=== PATIENT | female | born 1950 | race Caucasian/White ===

== ENCOUNTER → 2024-02-01 11:49 | Outpatient (REF) | payer MEDICARE, OTHER, SELFPAY | LOC: WDC 11:49 | PROVIDERS: ATTENDING PHYSICIAN Obstetrics & Gynecology Gynecology; FAMILY PHYSICIAN Internal Medicine Geriatric Medicine | DX: Z12.31 Encounter for screening mammogram for malignant neoplasm of breast (principal) | CPT/HCPCS: 77063; 77067 ==

== ENCOUNTER → 2024-05-10 06:41 | Day surgery (SDC) | payer MEDICARE, OTHER, SELFPAY | LOC: GI 06:41 | PROVIDERS: ATTENDING PHYSICIAN Internal Medicine Gastroenterology | DX: K22.89 Other specified disease of esophagus (principal); K44.9 Diaphragmatic hernia without obstruction or gangrene; E16.4 Increased secretion of gastrin; R14.0 Abdominal distension (gaseous) | CPT/HCPCS: 43239; 88305; 88342 ==

== ENCOUNTER → 2025-02-04 11:40 | Outpatient (REF) | payer MEDICARE, OTHER, SELFPAY | LOC: WDC 11:40 | PROVIDERS: ATTENDING PHYSICIAN Family Medicine | DX: Z12.31 Encounter for screening mammogram for malignant neoplasm of breast (principal) | CPT/HCPCS: 77063; 77067 ==

== ENCOUNTER 2025-10-21 22:06 | Emergency (ER) | payer MEDICARE, OTHER, SELFPAY ==
[2025-10-21 22:10] VITALS: BP 165/75
[2025-10-21 22:32] LABS: Hematocrit 42.1 % (37.0-47.0); Hemoglobin 14.8 g/dL (12.0-16.0); Mean Corp Hgb Conc. 35.2 g/dL (33.0-37.0); Mean Corpuscular Volume 88.3 fL (81.0-99.0); Nucleated Red Blood Cells % 0 %; Platelet Count 339 10^3/uL (130-400); Red Cell Dist. Width 12.4 % (11.5-14.5)
[2025-10-21 23:12] LABS: ALT (SGPT) 24 U/L (0-35); AST (SGOT) 28 U/L (14-36); Albumin 4.7 g/dl (3.5-5.0); Alkaline Phosphatase 96 U/L (38-126); Blood Urea Nitrogen 14 mg/dl (7-17); Calcium 9.8 mg/dl (8.4-10.2); Carbon Dioxide 28 mmol/L (22-30); Chloride 101 mmol/L (98-107); Glucose 103 mg/dl (70-99); Lipase 138 U/L (23-300); Potassium 3.6 mmol/L (3.5-5.1); Sodium 138 mmol/L (135-145); Total Protein 7.8 g/dl (6.3-8.2); eGFR > 60.00
[2025-10-21 23:51] VITALS: BMI 25.4
--- NOTE | 2025-10-21 23:56 | ED.GENMED ---
History of Present Illness
General
Chief Complaint: Abdominal Pain
Time Seen by Provider: 10/21/25 23:46
History of Present Illness
History of Present Illness:
75-year-old female presents to the emergency department for evaluation of sudden onset gastric abdominal pain associated with sweating and nausea that developed proximately 2 hours prior to arrival. This occurred approximately 2 to 3 hours after
eating dinner which she states was a tunafish sandwich. Had a similar several was accompanied by heavy feeling diarrhea. That event was similarly provide. Denies any current pain. No associated vomiting or diarrhea today. Prior abdominal
surgeries a bladder lift. No fever, chills, chest pain, or shortness of breath
Past History
Past History
ED Past Medical History: HTN, Hypercholesterolemia and Hypothyroidism
Patient has exhibited threatening behavior?: No
Social History
Tobacco: Non-smoker
Personal:
Review of Systems
Review of Systems
Allergies reviewed?: Yes
All Other Systems: ROS reviewed and negative except as documented in HPI and ROS
Phy Exam
Physical Exam
Physical Exam:
GEN: Well appearing, NAD, WDWN
HEENT: Oral mucosa moist, no scleral icterus
Cardiac: Regular rate
Lung: No respiratory distress, no tachypnea
Abdomen: Soft, grossly nontender to palpation, negative Anaya sign
MSK: No gross deformity or injuries
Skin: Good color, no pallor or jaundice, no rashes
Neuro: AO x3, moves all extremities freely
Psych: Calm, cooperative
Course
Orders/Labs/Results
Orders:
Orders
10/21/25 22:23
Complete Blood Count/With Diff Urgent
Comprehensive Metabolic Panel Urgent
Lipase Urgent
10/22/25 00:00
US Abdomen Complete/Upper Urgent
Reason For Exam: epigastric/colicky pain
Abnormal Lab Results
10/21/25
22:23
WBC 16.9 H 10^3/uL
(4.8-10.8)
Abs Immat Gran (auto) 0.1 H 10^3/uL
(0-0.05)
Absolute Neuts (auto) 9.9 H 10^3/uL
(1.4-6.5)
Absolute Lymphs (auto) 5.1 H 10^3/uL
(1.2-3.4)
Absolute Monos (auto) 1.2 H 10^3/uL
(0.1-0.6)
Glucose 103 H mg/dl
(70-99)
10/21/25 22:23
10/21/25 22:23
Vital Signs
Initial and Last Documented VS:
Initial Vital Signs
Temp Pulse Resp BP Pulse Ox
97.7 F 82 20 165/75 96
10/21/25 22:10 10/21/25 22:10 10/21/25 22:10 10/21/25 22:10 10/21/25 22:10
Last Documented Vital Signs
Temp Pulse Resp BP Pulse Ox
97.7 F 68 18 135/55 93
10/21/25 22:10 10/22/25 01:48 10/22/25 01:48 10/22/25 01:48 10/22/25 01:48
MDM/Problems Addressed
MDM/Problems Addressed:
Ultrasound is unremarkable. Patient does have leukocytosis but this is likely a stress response due to acute pain. She has a benign abdominal exam otherwise and no recurrent pain while in the ED. No indication for CT at this time given benign
exam. Recommend primary care and GI follow-up for further evaluation
*Pulse Oximetry
SaO2: 96
Oxygen Mode of Delivery: Room air
Patient hypoxic: no
*Critical Care Note
Total Time (30-74mins, 75-104mins- exclusive of procedures): Not Applicable
ED Attending Note
-
Portions of this chart may have been created with voice recognition software.� Occasional wrong word or��sound alike� substitutions may have occurred due to the inherent limitations of voice recognition software.
Discharge Plan
Departure
Patient Disposition: Home (Routine Discharge)
Date of Disposition: 10/22/25
Time of Disposition: 02:23
Patient with high blood pressure during this ER visit?: No
Discharge Problem:
Abdominal pain
Instructions: Abdominal Pain
Prescriptions:
No Action
dicyclomine 10 MG capsule
10 mg PO QPM
levothyroxine 112 MCG tablet
112 mcg PO DAILY
rifaximin [Xifaxan] 550 MG tablet
550 mg PO BID PRN (Reason: IBS)
aspirin 81 MG tablet,delayed release (DR/EC)
81 mg PO DAILY
famotidine 20 MG tablet
20 mg PO HSPRN PRN (Reason: stomach upset)
simvastatin 20 MG tablet
10 mg PO QPM
ibuprofen 400 MG tablet
400 mg PO Q4HPRN PRN (Reason: mild pain)
digestive enzymes 1 TAB.CHEW tablet,chewable
1 tab.chew PO MEALS
Referrals:
Kamila Jurado MD [Active, Gastroenterology] - Call in 1-3 days for appt
UNKNOWN - PT DOES,NOT KNOW [Family Provider]
Interventions
Interventions:
*General Assessment Last Done: 10/21/25 22:10
*Neglect/Abuse Screening Last Done: 10/21/25 22:10
*ED COVID-19 Vaccine History Last Done: 10/21/25 23:51
*ED Influenza Vaccine History Last Done: 10/21/25 23:51
[facility] Fall Risk Assessment Tool Last Done: 10/21/25 23:51
*Risk Screen - Suicide (C-SSRS) Last Done: 10/21/25 22:10
*Nursing Disposition Last Done: 10/22/25 02:31
NB-[id number]-[id number] Assessment Last Done: 10/21/25 23:49
Discharge Date and Time
Discharge Date/Time: 10/22/25 02:32
Print Language: AMERICAN
[2025-10-22 01:48] VITALS: BP 135/55
== END 2025-10-22 02:32 | disposition home or self-care (01) ==
LOC: EMR 22:06
PROVIDERS: Emergency Medicine; EMERGENCY PHYSICIAN Student in an Organized Health Care Education/Training Program
DX: R10.13 Epigastric pain (principal); D72.829 Elevated white blood cell count, unspecified; I10 Essential (primary) hypertension; E78.00 Pure hypercholesterolemia, unspecified; E03.9 Hypothyroidism, unspecified; Z79.82 Long term (current) use of aspirin
CPT/HCPCS: 99284; 76700; 80053; 83690; 85025